=== PATIENT | male | born 1960 | race Caucasian/White ===

== ENCOUNTER 2021-07-27 23:15 | Emergency (ER) | payer MEDICARE, OTHER ==
[~2021-07-27] VITALS: Ht 185.4 cm; Wt 114.8 kg
== END 2021-07-28 02:37 | disposition home or self-care (01) ==
LOC: ED 23:15
DX: T24.301A Burn of third degree of unspecified site of right lower limb, except ankle and foot, initial encounter (principal); T31.0 Burns involving less than 10% of body surface; X08.8XXA Exposure to other specified smoke, fire and flames, initial encounter; I10 Essential (primary) hypertension; Z88.8 Allergy status to other drugs, medicaments and biological substances; Z88.1 Allergy status to other antibiotic agents
CPT/HCPCS: 80053; 83605; 85025; 90471; 90715; 93971; 99284-25; A9270

== ENCOUNTER 2021-09-27 10:21 | Emergency (ER) | payer MEDICARE, MEDICAID ==
[~2021-09-27] VITALS: Ht 185.4 cm; Wt 114.8 kg
[2021-09-27] MEDS ORDERED: CEFPODOXIME PR200 MG PO (14:39)
== END 2021-09-27 15:50 | disposition home or self-care (01) ==
LOC: ED 10:21
DX: N50.812 Left testicular pain (principal); R10.9 Unspecified abdominal pain; I10 Essential (primary) hypertension; Z88.8 Allergy status to other drugs, medicaments and biological substances; Z88.1 Allergy status to other antibiotic agents
CPT/HCPCS: 36415; 51701; 74176; 80053; 81001; 85025; 99284-25; J0696; J1885; J7121

== ENCOUNTER 2021-10-01 17:37 | Emergency (ER) | payer MEDICARE, MEDICAID ==
[~2021-10-01] VITALS: Ht 185.4 cm; Wt 114.8 kg
[~2021-10-01 17:37] MED LIST: CEFPODOXIME PR200 MG PO
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
== END 2021-10-01 20:03 | disposition home or self-care (01) ==
LOC: ED 17:37
DX: R09.89 Other specified symptoms and signs involving the circulatory and respiratory systems (principal); I10 Essential (primary) hypertension; Z88.8 Allergy status to other drugs, medicaments and biological substances; Z88.1 Allergy status to other antibiotic agents; Z88.6 Allergy status to analgesic agent; Z79.899 Other long term (current) drug therapy
CPT/HCPCS: 99283

== ENCOUNTER 2021-10-13 19:29 | Emergency (ER) | payer MEDICARE, MEDICAID ==
[~2021-10-13] VITALS: Ht 185.4 cm; Wt 86.6 kg
--- OUTSIDE RECORDS SUMMARY | 2021-10-13 19:36 | XMS ---
PreManage Notification: SCAR BOWIE Security Checker Dump Grounds Events No recent Security Events currently on file CRITERIA MET - [facility] - 2 Visits in 30 Days CARE PROVIDERS There are no care providers on record at this time. Javi has no Care Guidelines for this patient. Vadim VISIT COUNT (12 MO.) 1 [facility] M.C[facility] 4 [facility] T[facility] 5 NOTE: Visits indicate total known visits. ED/C VISIT TRACKING (12 MO.) 10/13/2021 19:[facility] [place] [facility] COMPLAINT: - ITCHING 10/01/2021 17:38 JESSICA Izquierdo [place] TYPE: Emergency COMPLAINT: - SWALLOWING PROBLEM DIAGNOSES: - Dysphagia, unspecified - Allergy status to other antibiotic agents - Allergy status to analgesic agent - Other mcc (current) drug therapy - Allergy status to other drugs, medicaments and biological substances - Essential (primary) hypertension - Other specified symptoms and signs involving the circulatory and respiratory systems 09/27/2021 10:22 JESSICA Izquierdo [place] TYPE: Emergency [...] visits to display in this time frame [id number]
[2021-10-13] MEDS ORDERED: VISTARIL25 MG PO (21:07)
[2021-10-13] MEDS ORDERED: ELIMITE60 GM TOP (21:07)
== END 2021-10-13 21:17 | disposition home or self-care (01) ==
LOC: ED 19:29
DX: L29.9 Pruritus, unspecified (principal); I10 Essential (primary) hypertension; Z88.8 Allergy status to other drugs, medicaments and biological substances; Z88.1 Allergy status to other antibiotic agents; Z88.6 Allergy status to analgesic agent
CPT/HCPCS: 99282

== ENCOUNTER 2021-10-15 20:32 | Emergency (ER) | payer MEDICARE, MEDICAID ==
[~2021-10-15] VITALS: Ht 185.4 cm; Wt 86.6 kg
[~2021-10-15 20:32] MED LIST changes: +ELIMITE60 GM TOP; +VISTARIL25 MG PO
--- OUTSIDE RECORDS SUMMARY | 2021-10-15 20:40 | XMS ---
PreManage Notification: SCAR BOWIE Security Sale Professional Digital Marketing Events No recent Security Events currently on file CRITERIA MET - [facility] - 2 Visits in 30 Days CARE PROVIDERS There are no care providers on record at this time. Javi has no Care Guidelines for this patient. Vadim VISIT COUNT (12 MO.) 1 Sonia [facility] M.C[facility] 5 [facility] NOTE: Visits indicate total known visits. ED/C VISIT TRACKING (12 MO.) 10/15/2021 20:33 [facility] [place] Emergency COMPLAINT: - MEDICATION REFILL 10/13/2021 19:29 [facility] [place] Sina [place] TYPE: Emergency COMPLAINT: - ITCHING 10/01/2021 17:38 [facility] [place] TYPE: Emergency COMPLAINT: - SWALLOWING PROBLEM DIAGNOSES: - Dysphagia, unspecified - Allergy status to other antibiotic agents - Allergy status to analgesic agent - Other retirement (current) drug therapy - Allergy status to other drugs, medicaments and biological substances - Essential (primary) hypertension - Other specified symptoms and signs involving the circulatory and respiratory systems 09/27/2021 10:[address] [facility] [address] [facility] [place] TYPE: Emergency COMPLAINT: - GENITAL PROBLEM [...] visits to display in this time frame [id number]
[2021-10-15] MEDS ORDERED: ELIMITE60 GM TOP (23:10)
[2021-10-15] MEDS ORDERED: VISTARIL25 MG PO (23:10)
== END 2021-10-15 23:24 | disposition home or self-care (01) ==
LOC: ED 20:32
DX: L29.9 Pruritus, unspecified (principal); I10 Essential (primary) hypertension; Z88.8 Allergy status to other drugs, medicaments and biological substances; Z88.1 Allergy status to other antibiotic agents; Z88.6 Allergy status to analgesic agent; Z79.899 Other long term (current) drug therapy
CPT/HCPCS: 99282

== ENCOUNTER 2021-10-22 10:05 | Emergency (ER) | payer MEDICARE, MEDICAID ==
[~2021-10-22] VITALS: Ht 185.4 cm; Wt 86.6 kg
--- OUTSIDE RECORDS SUMMARY | 2021-10-22 10:14 | XMS ---
PreManage Notification: SCAR BOWIE Security Deck Lid Fitter Events No recent Security Events currently on file CRITERIA MET - 6 ED Visits in 6 Months - [facility] - 2 Visits in 30 Days CARE PROVIDERS There are no care providers on record at this time. Javi has no Care Guidelines for this patient. Vadim VISIT COUNT (12 MO.) 1 [facility] T[facility] NOTE: Visits indicate total known visits. ED/C VISIT TRACKING (12 MO.) 10/22/2021 10:07 [facility] [place] [place] [facility] Emergency COMPLAINT: - MEDICATION PROBLEM 10/15/2021 20:33 JESSICA Izquierdo [place] TYPE: Emergency COMPLAINT: - MEDICATION REFILL DIAGNOSES: - Rash and other nonspecific skin eruption - Allergy status to analgesic agent - Allergy status to other antibiotic agents - Pruritus, unspecified - Allergy status to other drugs, medicaments and biological substances - Other assistant terminal manager (current) drug therapy - Essential (primary) hypertension 10/13/2021 19:29 JESSICA Izquierdo [place] TYPE: Emergency COMPLAINT: - ITCHING DIAGNOSES: - Allergy status to other drugs, medicaments and biological substances - Essential (primary) hypertension - Pruritus, unspecified - Allergy status to other antibiotic agents - Allergy status to analgesic agent 10/01/2021 17:38 JESSICA Izquierdo [place] TYPE: Emergency COMPLAINT: - SWALLOWING PROBLEM DIAGNOSES: - Dysphagia, unspecified - Allergy status to other antibiotic agents - Allergy status to analgesic agent - Other assistant terminal manager (current) drug therapy - Allergy status to [...] visits to display in this time frame [id number]
== END 2021-10-22 11:10 | disposition home or self-care (01) ==
LOC: ED 10:05
DX: L30.9 Dermatitis, unspecified (principal); I10 Essential (primary) hypertension; Z88.1 Allergy status to other antibiotic agents; Z88.6 Allergy status to analgesic agent; Z88.8 Allergy status to other drugs, medicaments and biological substances; Z79.899 Other long term (current) drug therapy
CPT/HCPCS: 99282

== ENCOUNTER 2021-10-25 22:35 | Emergency (ER) | payer MEDICARE, MEDICAID ==
[~2021-10-25] VITALS: Ht 185.4 cm; Wt 97.0 kg
--- OUTSIDE RECORDS SUMMARY | 2021-10-25 22:38 | XMS ---
PreManage Notification: SCAR BOWIE Security Racing Secretary And Handicapper Events No recent Security Events currently on file CRITERIA MET - [facility] - 2 Visits in 30 Days - 6 ED Visits in 6 Months CARE PROVIDERS There are no care providers on record at this time. Javi has no Care Guidelines for this patient. Vadim VISIT COUNT (12 MO.) 1 [facility]onia [facility] M.C. 7 [facility] T[facility] 8 NOTE: Visits indicate total known visits. ED/C VISIT TRACKING (12 MO.) 10/25/2021 22:36 [facility] [place] [place] [facility] Emergency COMPLAINT: - LEFT ANKLE, RIGHT ELBOW PAIN 10/22/2021 10:07 JESSICA Izquierdo [place] TYPE: Emergency COMPLAINT: - MEDICATION PROBLEM 10/15/2021 20:33 JESSICA Izquierdo [place] TYPE: Emergency COMPLAINT: - MEDICATION REFILL DIAGNOSES: - Rash and other nonspecific skin eruption - Allergy status to analgesic agent - Allergy status to other antibiotic agents - Pruritus, unspecified - Allergy status to other drugs, medicaments and biological substances - Other terminal gauger (current) drug therapy - Essential (primary) hypertension [...] Allergy status to analgesic agent - Other terminal gauger (current) drug therapy - Allergy status to [...] visits to display in this time frame [id number]
[2021-10-26] MEDS ORDERED: IBU600 MG PO (00:47)
== END 2021-10-26 01:15 | disposition home or self-care (01) ==
LOC: ED 22:35
DX: Z47.89 Encounter for other orthopedic aftercare (principal); I10 Essential (primary) hypertension; Z88.8 Allergy status to other drugs, medicaments and biological substances; Z88.1 Allergy status to other antibiotic agents; Z88.6 Allergy status to analgesic agent
CPT/HCPCS: 73080; 73610; 99283-25; A9270

== ENCOUNTER 2021-10-27 20:43 | Emergency (ER) | payer OTHER, MEDICARE, MEDICAID ==
[~2021-10-27] VITALS: Ht 185.4 cm; Wt 96.6 kg
[~2021-10-27 20:43] MED LIST changes: +IBU600 MG PO
--- OUTSIDE RECORDS SUMMARY | 2021-10-27 20:46 | XMS ---
PreManage Notification: SCAR BOWIE Security Agricultural Plow Operator Events No recent Security Events currently on file CRITERIA MET - [facility] - 2 Visits in 30 Days - 6 ED Visits in 6 Months CARE PROVIDERS There are no care providers on record at this time. Javi has no Care Guidelines for this patient. Vadim VISIT COUNT (12 MO.) 1 Sonia Karimi M.C. 8 [facility] TOTAL 9 NOTE: Visits indicate total known visits. ED/C VISIT TRACKING (12 MO.) 10/27/2021 20:43 [facility] [place] [facility] COMPLAINT: - LOST SPLINT 10/25/2021 22:36 JESSICA Izquierdo [place] TYPE: Emergency COMPLAINT: - LEFT ANKLE, RIGHT ELBOW PAIN 10/22/2021 10:07 JESSICA Izquierdo [place] TYPE: Emergency COMPLAINT: - MEDICATION PROBLEM DIAGNOSES: - Allergy status to other antibiotic agents - Dermatitis, unspecified - Allergy status to analgesic agent - Essential (primary) hypertension - Rash and other nonspecific skin eruption - Allergy status to other drugs, medicaments and biological substances - Other termite technician (current) drug therapy 10/15/2021 20:33 JESSICA Izquierdo [place] TYPE: Emergency COMPLAINT: - MEDICATION REFILL DIAGNOSES: - Rash and other nonspecific skin eruption - Allergy status to analgesic agent - Allergy status to other antibiotic agents - Pruritus, unspecified - Allergy status to other drugs, medicaments and biological substances - Other halfway (current) drug therapy - Essential (primary) hypertension 10/13/2021 19:[address] [facility] [place] TYPE: Emergency COMPLAINT: - ITCHING DIAGNOSES: - Allergy status to other drugs, medicaments and biological substances - Essential (primary) hypertension - Pruritus, unspecified - Allergy status to other antibiotic agents - Allergy status to analgesic agent 10/01/2021 17:[address] [facility] [address] [place] TYPE: Emergency COMPLAINT: - SWALLOWING PROBLEM DIAGNOSES: - Dysphagia, unspecified - Allergy status to other antibiotic agents - Allergy status to analgesic agent - Other termite technician (current) drug therapy - Allergy status to other drugs, medicaments and biological substances - Essential (primary) hypertension - Other specified symptoms and signs involving the circulatory and respiratory systems 09/27/2021 10:22 [facility] [address] [place] TYPE: Emergency COMPLAINT: - GENITAL PROBLEM [...] visits to display in this time frame [id number]
== END 2021-10-27 22:02 | disposition home or self-care (01) ==
LOC: ED 20:43
DX: Z46.89 Encounter for fitting and adjustment of other specified devices (principal); I10 Essential (primary) hypertension; Z88.8 Allergy status to other drugs, medicaments and biological substances; Z88.1 Allergy status to other antibiotic agents; Z88.6 Allergy status to analgesic agent
CPT/HCPCS: 29105; 99282-25

== ENCOUNTER 2021-10-30 17:14 | Emergency (ER) | payer MEDICARE, MEDICAID ==
[~2021-10-30] VITALS: Ht 185.4 cm; Wt 95.4 kg
--- OUTSIDE RECORDS SUMMARY | 2021-10-30 17:16 | XMS ---
PreManage Notification: SCAR BOWIE Security Stocking Inspector Events No recent Security Events currently on file CRITERIA MET - 6 ED Visits in 6 Months - [facility] - 2 Visits in 30 Days CARE PROVIDERS There are no care providers on record at this time. Javi has no Care Guidelines for this patient. Vadim VISIT COUNT (12 MO.) 1 Sonia Karimi M.C. 9 [facility] TOTAL 10 NOTE: Visits indicate total known visits. ED/UCC VISIT TRACKING (12 MO.) 10/30/2021 17:14 [facility] [place] [place] TYPE: Emergency COMPLAINT: - LT ELBOW PAIN 10/27/2021 20:43 JESSICA Izquierdo [place] TYPE: Emergency COMPLAINT: - LOST SPLINT DIAGNOSES: - Allergy status to analgesic agent - Encounter for fitting and adjustment of other specified devices - Allergy status to other drugs, medicaments and biological substances - Essential (primary) hypertension - Allergy status to other antibiotic agents 10/25/2021 22:36 JESSICA Izquierdo [place] TYPE: Emergency COMPLAINT: - LEFT ANKLE, RIGHT ELBOW PAIN DIAGNOSES: - Allergy status to analgesic agent - Encounter for other orthopedic aftercare - Essential (primary) hypertension - Allergy status to other drugs, medicaments and biological substances - Allergy status to other antibiotic agents 10/22/2021 10:07 JESSICA Izquierdo [place] TYPE: Emergency COMPLAINT: - MEDICATION PROBLEM DIAGNOSES: - Allergy status to other antibiotic agents - Dermatitis, unspecified - Allergy status to analgesic agent - Essential (primary) hypertension - Rash and other nonspecific skin eruption - Allergy status to other drugs, medicaments and biological substances - Other buttermaker (current) drug therapy 10/15/2021 20:33 [facility] [place] TYPE: Emergency COMPLAINT: - MEDICATION REFILL DIAGNOSES: - Rash and other nonspecific skin eruption - Allergy status to analgesic agent - Allergy status to other antibiotic agents - Pruritus, unspecified - Allergy status to other drugs, medicaments and biological substances - Other buttermaker (current) drug therapy - Essential (primary) hypertension 10/13/2021 19:29 [facility] [place] TYPE: Emergency COMPLAINT: - ITCHING DIAGNOSES: - Allergy status to other drugs, medicaments and biological substances - Essential (primary) hypertension - Pruritus, unspecified - Allergy status to other antibiotic agents - Allergy status to analgesic agent 10/01/2021 17:38 [facility] [place] TYPE: Emergency COMPLAINT: - SWALLOWING PROBLEM DIAGNOSES: - Dysphagia, unspecified - Allergy status to other antibiotic agents - Allergy status to analgesic agent - Other long-term (current) drug therapy - Allergy status to [...] visits to display in this time frame [id number]
[2021-10-30] MEDS ORDERED: NAPROSYN500 MG PO (17:36)
[2021-10-30] MEDS ORDERED: CLINDAMYCIN HC300 MG PO (17:36)
== END 2021-10-30 18:14 | disposition home or self-care (01) ==
LOC: ED 17:14
DX: M70.22 Olecranon bursitis, left elbow (principal); I10 Essential (primary) hypertension; Z88.8 Allergy status to other drugs, medicaments and biological substances
CPT/HCPCS: 73080; 99283-25

== ENCOUNTER 2021-10-31 22:44 | Emergency (ER) | payer MEDICARE, MEDICAID ==
[~2021-10-31] VITALS: Ht 185.4 cm; Wt 98.2 kg
[~2021-10-31 22:44] MED LIST changes: +CLINDAMYCIN HC300 MG PO; +NAPROSYN500 MG PO
== END 2021-11-01 01:43 | disposition home or self-care (01) ==
LOC: ED 22:44
DX: S56.911A Strain of unspecified muscles, fascia and tendons at forearm level, right arm, initial encounter (principal); I10 Essential (primary) hypertension; Z88.6 Allergy status to analgesic agent; Z88.8 Allergy status to other drugs, medicaments and biological substances; Z79.899 Other long term (current) drug therapy; X58.XXXA Exposure to other specified factors, initial encounter
CPT/HCPCS: 73090; 99283-25

== ENCOUNTER 2021-11-05 16:37 | Emergency (ER) | payer MEDICARE, MEDICAID ==
[~2021-11-05] VITALS: Ht 185.4 cm; Wt 98.2 kg
--- OUTSIDE RECORDS SUMMARY | 2021-11-05 16:40 | XMS ---
PreManage Notification: SCAR BOWIE Security Procurement Buyer Events No recent Security Events currently on file CRITERIA MET - 6 ED Visits in 6 Months - [facility] - 2 Visits in 30 Days CARE PROVIDERS There are no care providers on record at this time. Javi has no Care Guidelines for this patient. Vadim VISIT COUNT (12 MO.) 1 Sonia Karimi M.C. 11 [facility] [facility]. TOTAL 12 NOTE: Visits indicate total known visits. ED/UCC VISIT TRACKING (12 MO.) 11/05/2021 16:38 [facility] [place] TYPE: Emergency COMPLAINT: - RT ARM PAIN 10/31/2021 22:45 JESSICA Izquierdo [place] TYPE: Emergency COMPLAINT: - ARM PAIN DIAGNOSES: - Essential (primary) hypertension - Other self pay specialist (current) drug therapy - Pain in right arm - Allergy status to analgesic agent - Strain of unspecified muscles, fascia and tendons at forearm level, right arm, initial encounter - Allergy status to other drugs, medicaments and biological substances - Exposure to other specified factors, initial encounter 10/30/2021 17:14 JESSICA Izquierdo [place] TYPE: Emergency COMPLAINT: - LT ELBOW PAIN DIAGNOSES: - Essential (primary) hypertension - Olecranon bursitis, left elbow - Allergy status to other drugs, medicaments and biological substances - Pain in right elbow 10/27/2021 20:43 JESSICA Izquierdo [place] TYPE: Emergency COMPLAINT: - LOST SPLINT DIAGNOSES: - Allergy status to analgesic agent - Encounter for fitting and adjustment of other specified devices - Allergy status to other drugs, medicaments and biological substances - Essential (primary) hypertension - Allergy status to other antibiotic agents 10/25/2021 22:36 JESSICA Nixony Sina [place] TYPE: Emergency COMPLAINT: - LEFT [...] drugs, medicaments and biological substances - Other self pay specialist (current) drug therapy 10/15/2021 20:[address] [facility] [address] [facility] [place] TYPE: Emergency COMPLAINT: - MEDICATION REFILL DIAGNOSES: - Rash and other nonspecific skin eruption - Allergy status to analgesic agent - Allergy status to other antibiotic agents - Pruritus, unspecified - Allergy status to other drugs, medicaments and biological substances - Other halfway (current) drug therapy - Essential (primary) hypertension 10/13/2021 19:29 JESSICA [place]ome [place] TYPE: Emergency COMPLAINT: - [...] Allergy status to analgesic agent - Other self pay specialist (current) drug therapy - Allergy status to other drugs, medicaments and biological substances - Essential (primary) hypertension - Other specified symptoms and signs involving the circulatory and respiratory systems 09/27/2021 10:[address] [facility] [address] [facility] [place] TYPE: Emergency [...] visits to display in this time frame [id number]
== END 2021-11-05 22:16 | disposition home or self-care (01) ==
LOC: ED 16:37
DX: S52.121A Displaced fracture of head of right radius, initial encounter for closed fracture (principal); M70.22 Olecranon bursitis, left elbow; I10 Essential (primary) hypertension; Z88.8 Allergy status to other drugs, medicaments and biological substances; Z88.6 Allergy status to analgesic agent; Z79.899 Other long term (current) drug therapy; X58.XXXA Exposure to other specified factors, initial encounter
CPT/HCPCS: 99283-25